=== PATIENT | female | born 1970 | race Caucasian/White ===

== ENCOUNTER → 2017-02-26 | Outpatient (CLI) | payer BC ==
--- NOTE | 2017-02-26 15:26 | Diagnostic Imaging Report ---
PROCEDURE: CT chest without contrast. TECHNIQUE: Multiple contiguous axial images were obtained through the chest without the use of intravenous contrast. INDICATION: Chronic pneumonia. Smoker. There is mild hyperaeration consistent with COPD. There is an 8 mm groundglass opacity in the right upper lobe located posteriorly and medially. The left lung is clear. There is no effusion or pneumothorax. There is no adenopathy. There are no bony destructive lesions. IMPRESSION: There is obstructive airway disease. There is an 8 mm opacity in the right upper lobe. This may be inflammatory in nature but recommend three month followup for stability/resolution. Dictated by: Dictated on workstation # [id number]
[2017-02-26 22:53] LABS: IGE DETAIL 386.3 IU/mL
[2017-03-01 07:18] LABS: INT IGE See Footnote
[2017-03-01 07:20] LABS: IMMUNOGLOBULIN IGA 290 mg/dL (71-263); IMMUNOGLOBULIN IGM 183 mg/dL (47-209)
== END ==
LOC: RAD 14:32
PROVIDERS: ATTEND Nurse Practitioner Family
DX: J84.10 Pulmonary fibrosis, unspecified (principal); J30.2 Other seasonal allergic rhinitis; Z72.0 Tobacco use
CPT/HCPCS: 36415; 71250; 82784; 82785

== ENCOUNTER → 2017-05-07 | Outpatient (CLI) | payer BC ==
[~2017-05-07] MED LIST: RT-ALBUTEROL SULF 2.5 MG/3 ML PRE-MIX VIAL IH ONE; RT-ALBUTEROL SULF 2.5 MG/3 ML PRE-MIX VIAL ONE
== END ==
LOC: RT 12:45
PROVIDERS: ATTEND Nurse Practitioner Family
DX: J84.10 Pulmonary fibrosis, unspecified (principal); J30.2 Other seasonal allergic rhinitis; Z72.0 Tobacco use
CPT/HCPCS: 94060; 94640; 94729

== ENCOUNTER → 2017-08-12 | Outpatient (CLI) | payer BC ==
--- NOTE | 2017-08-12 16:51 | Diagnostic Imaging Report ---
PROCEDURE: CT chest without contrast. TECHNIQUE: Multiple contiguous axial images were obtained through the chest without the use of intravenous contrast. INDICATION: Abnormal CT scan of the chest. COMPARISON: Comparison is made to study of 02/26/2017. FINDINGS: Unenhanced images of the heart and mediastinum are unremarkable. There is no evidence of pulmonary mass or infiltrate. No pathologically enlarged adenopathy is identified. There is no significant pleural or pericardial fluid. Gallbladder is surgically absent. IMPRESSION: No evidence of persistent nodule seen in the upper lobe of the right lung on previous study. There is no evidence of new abnormality or adverse change. Dictated by: Dictated on workstation # [id number]
== END ==
LOC: RAD 16:05
PROVIDERS: ATTEND Nurse Practitioner Family
DX: R93.8 Abnormal findings on diagnostic imaging of other specified body structures (principal); Z72.0 Tobacco use
CPT/HCPCS: 71250

== ENCOUNTER → 2023-06-08 | Outpatient (CLI) | payer BC ==
--- NOTE | 2023-06-08 09:01 | Diagnostic Imaging Report ---
CLINICAL INDICATION: Patient with degenerative joint disease. EXAM: MRI of the cervical spine performed without IV contrast. Sequences include sagittal T2, sagittal T1, sagittal T2 fat-sat, and axial T2. COMPARISON: None. FINDINGS: There is no acute cervical spine fracture or dislocation. There are Modic type I degenerative signal changes involving the C6-C7 endplate. Limited visualization of the posterior fossa. The cervical spinal cord has normal cord caliber with no abnormal signal. There is no significant paraspinal soft tissue abnormality. There are degenerative spurs involving the mid to lower cervical spine. There is straightening of the lower cervical spine. C1-C2: There is no significant central canal stenosis. C2-C3: There is moderate left facet arthropathy. There is mild left neuroforaminal narrowing. There is no significant central canal or right neuroforaminal narrowing. C3-C4: There is mild bilateral facet arthropathy. There is moderate right neuroforaminal narrowing and mild to moderate left neuroforaminal narrowing. There is mild central canal narrowing. There is a mild diffuse disk bulge. C4-C5: There is mild bilateral facet arthropathy. There is moderate left neuroforaminal narrowing and no significant right neuroforaminal narrowing. There is mild central canal stenosis. There is no significant disk bulge. C5-C6: There is a diffuse disk bulge with mild loss of disk space height. There are bilateral uncinate spurs. There is mild lateral facet arthropathy. There is severe right neuroforaminal narrowing and mild to moderate left neuroforaminal narrowing. There is moderate to severe central canal stenosis. C6-C7: There is a diffuse disk bulge with severe loss of disk space height and endplate irregularity. There are hypertrophic spurs posteriorly and bilateral uncinate spurs. There is moderate to severe central canal stenosis. There is severe right neuroforaminal narrowing and mild left neuroforaminal narrowing. C7-T1: There is no significant central canal or neuroforaminal narrowing. IMPRESSION: There is multilevel cervical spine degenerative disk disease as described above. Dictated by: Dictated on workstation # [id number]
== END ==
LOC: RAD 08:00
PROVIDERS: ATTEND Physician Assistant
DX: M47.812 Spondylosis without myelopathy or radiculopathy, cervical region (principal); M48.02 Spinal stenosis, cervical region; M50.31 Other cervical disc degeneration, high cervical region; M50.322 Other cervical disc degeneration at C5-C6 level; M50.323 Other cervical disc degeneration at C6-C7 level
CPT/HCPCS: 72141

== ENCOUNTER → 2023-09-24 | Outpatient (CLI) | payer BC ==
--- NOTE | 2023-09-24 17:53 | Diagnostic Imaging Report ---
PROCEDURE: CT cervical spine without contrast. TECHNIQUE: Multiple contiguous axial images were obtained through the cervical spine without the use of intravenous contrast. Sagittal and coronal reformations were then performed. Auto Exposure Controls were utilized during the CT exam to meet ALARA standards for radiation dose reduction. INDICATION: Neck pain COMPARISON: Cervical spine MRI of 06/08/2023 FINDINGS: Straightening of sacral spine is similar in appearance. There is no spondylolisthesis. No fracture has developed. Additionally, there is no abnormal ankylosis within the cervical spine. Congenital incomplete fusion of the posterior arch of C1. Degenerative changes again remain most advanced at C6-C7 where there is Modic type III degenerative endplate sclerosis and posterior endplate spurring. This again causes approximately moderate spinal canal stenosis. No cervical lymphadenopathy. Airways widely patent. No retropharyngeal fluid collection. The thyroid is normal. IMPRESSION: 1. Multilevel degenerative changes in the cervical spine are stable since MRI of 06/08/2023. These remain most advanced at C6-C7. Dictated by: Dictated on workstation # [id number]
== END ==
LOC: RAD 15:45
PROVIDERS: ATTEND Orthopaedic Surgery Orthopaedic Surgery of the Spine
DX: M50.323 Other cervical disc degeneration at C6-C7 level (principal)
CPT/HCPCS: 72125